=== PATIENT | male | born 1960 ===

== ENCOUNTER 2021-02-03 05:24 | Day surgery (SDC) | payer OTHER ==
[~2021-02-03 05:24] MED LIST: CRESTOR10 MG PO; PROZAC PO; PROZAC10 M1 PO
[2021-02-03] MEDS ORDERED: NEURONTIN300 MG PO (08:15)
[2021-02-03] MEDS ORDERED: PERCOCET 5-3251 EACH PO (08:16)
[2021-02-03] MEDS ORDERED: KETO10TA2 PO (08:16)
[2021-02-03] MEDS ORDERED: DERMOPLAST PAIN78 GM TOP (08:18)
== END 2021-02-03 13:25 | disposition home or self-care (01) ==
LOC: CIR.AMB 05:24
PROVIDERS: ATTEND Surgery
DX: K64.8 Other hemorrhoids (principal); K64.4 Residual hemorrhoidal skin tags; Z20.822 Contact with and (suspected) exposure to COVID-19

== ENCOUNTER 2021-07-06 10:09 | Outpatient (CLI) | payer OTHER ==
[~2021-07-06 10:09] MED LIST changes: +DERMOPLAST PAIN78 GM TOP; +KETO10TA2 PO; +NEURONTIN300 MG PO; +PERCOCET 5-3251 EACH PO
== END 2021-07-10 10:17 | disposition home or self-care (01) ==
LOC: RAD 10:09
PROVIDERS: ATTEND Surgery
DX: K57.32 Diverticulitis of large intestine without perforation or abscess without bleeding (principal); K62.5 Hemorrhage of anus and rectum; K64.2 Third degree hemorrhoids; K59.02 Outlet dysfunction constipation; K59.01 Slow transit constipation; K59.09 Other constipation